=== PATIENT | male | born 2000 | race Caucasian/White ===

== ENCOUNTER 2024-07-31 12:57 | Emergency (ER) | payer MEDICAID, SELFPAY ==
[2024-07-31 13:02] VITALS: BP 141/98; PULSE 103; RESP 18; TEMP 37.2; O2SAT 99; BMI 28.6
--- NOTE | 2024-07-31 13:04 | ED.GENADULT ---
HPI - General Adult General Chief complaint: Dental/Oral Stated complaint: ? Infection Time Seen by Provider: 07/31/24 13:04 Source: patient, RN notes reviewed and old records reviewed Mode of arrival: ambulatory Limitations: no limitations History of Present Illness ED Provider: Reji MENDIOLA narrative: 23-year-old male presents for evaluation of dental pain and facial pain. Patient reports he has had right lower dental pain since yesterday. His pain radiates to the right side of his face He reports that he had an old dental fracture and had surgery on the same tooth about 2 years ago He reports he was on antibiotics for pain in the area about 1 year ago He denies any fevers or chills No other complaints or concerns at this time Related Data Previous Rx's ?Medication ?Instructions ?Recorded amoxicillin 875 mg-potassium 1 tab PO Q12H #14 tabs 07/31/24 clavulanate 125 mg tablet Allergies Allergy/AdvReac Type Severity Reaction Status Date / Time No Known Allergies Allergy Verified 07/31/24 13:03 Review of Systems Constitutional: Constitutional: Denies headache(s) ENT: Denies headache(s) and Reports mouth pain Neurologic: Denies headache(s) Physical Exam ED Vital Signs: Vital Signs - 24 hr 07/31/24 13:02 Temperature 99 F Pulse Rate 103 H Respiratory Rate 18 Blood Pressure 141/98 H Pulse Oximetry 99 BMI result Body Mass Index 28.6 Const General: healthy appearing, comfortable, no acute distress, alert and awake Nutritional Appearance: well nourished Orientation/consciousness: patient oriented x3 HENMT Other: Previous dental fracture to right lower molar. The root was exposed. There is no significant erythema or edema. No abscess. No Jamari's angina. No anterior neck edema. The surrounding gingiva is tender to palpation Head: Yes normocephalic and Yes atraumatic Eyes Eyelids: Yes eyelids normal Conjunctivae: conjunctivae normal Sclerae: sclerae normal Corneas: corneas normal Pupils: Equal, round and reactive pupils present EOM: EOMs intact bilaterally Neck Neck: Yes full ROM Resp Effort & Inspection: normal respiratory effort, able to speak in complete sentences and not labored Skin General skin exam: elasticity normal Neuro General: patient oriented x3 Cranial nerves: Yes Equal, round and reactive pupils present and Yes Bilaterally intact EOM present Cognition (Neuro): normal cognition Extrem Other: Moving all extremities well without any obvious deformities Medical Decision Making Medical Decision Making MDM Narrative: 23-year-old male presents for evaluation of right facial and dental pain at the area of a previous a dental fracture and root canal. There was no obvious abscess. We will treat with Augmentin b.i.d. x1 week. He was encouraged to follow up with a dentist as soon as possible Differential Diagnosis Differential Diagnoses: The differential diagnosis associated with the presentation includes Dental caries Dental abscess Gingivitis Facial pain Discharge Plan Discharge Clinical Impression: Dental caries, Acute facial pain Patient Disposition: Home, Self-Care Instructions: Toothache (ED) Additional Instructions: Take the antibiotic twice daily for 1 week. You may use omnu-gau-dhrauad Orajel or benzocaine to help with the pain. You may also use ibuprofen/Tylenol I recommend that you follow-up with a dentist, call to schedule an appointment as soon as possible Return for new or worsening symptoms Prescriptions: New amoxicillin-pot clavulanate 875-125 mg tablet 1 tab PO Q12H Qty: 14 0RF Stand Alone Forms: Work/School Release Print Language: Italian
--- OUTSIDE RECORDS SUMMARY | 2024-07-31 13:22 | XMS_ITS | Encounter Summary ---
Author Organization [facility] Address [address] [place] [id number] Phone Care Team Providers Care Dance Hall Host/Hostess Name Role Phone Zoe Cedillo MD Primary Care Provider Unavailabl e Encounter Details Date Type Department Care Team (Late st Contact Info) Description 10/25/2016 Conversion Encounter [facility] - [address] [id number] Social History Tobacco Use Types Packs/Day Years Used Date Smoking Tobacco: Never Comments:Never smoker Sex and Gender Information Value Date Recorded Sex Assigned at Not on file Legal Sex Male 5:00 PM EDT Gender Identity Not on file Sexual Orientation Not on file documented as of this encounter Plan of Treatment Not on file documented as of this encounter Visit Diagnoses Not on filedocumented in this encounter Care Teams Dance Hall Host/Hostess Relationship Specialty Start Date End Date Zoe Cedillo MD PCP - General 10/19/16 documented as of this encounter
== END 2024-07-31 13:19 | disposition home or self-care (01) ==
LOC: HO.ED 13:19
PROVIDERS: Emergency Provider Emergency Medicine
DX: K02.9 Dental caries, unspecified (principal); R51.9 Headache, unspecified
CPT/HCPCS: 99281; 99283